=== PATIENT | male | born 1935 | race Caucasian/White ===

== ENCOUNTER 2022-11-30 19:35 | Emergency (ER) | payer MEDICARE, OTHER ==
[~2022-11-30] VITALS: Ht 177.8 cm; Wt 63.5 kg
[2022-11-30 20:00] VITALS: BP 126/70
--- NOTE | 2022-11-30 20:00 | NUR ---
[id number] FOUND WANDERING ON THE STRE[address], PATIENT STS "I LIVE IN [facility] [place]", NO MEDICAL COMPLAIN
--- NOTE | 2022-11-30 20:10 | NUR ---
PT SEEN BY CARTER
--- NOTE | 2022-11-30 20:32 | NUR ---
[facility] CALLED FOR GOING TO [facility] PER [place] ETA 15 MIN
--- NOTE | 2022-11-30 21:52 | NUR ---
PT PICKED UP BY [facility] TO DC TO [facility]
== END 2022-11-30 23:13 ==
LOC: ER 19:53
DX: Z04.6 Encounter for general psychiatric examination, requested by authority (principal)

== ENCOUNTER 2023-01-22 10:24 | Emergency (ER) | payer MEDICARE, OTHER ==
[~2023-01-22] VITALS: Ht 177.8 cm; Wt 68.0 kg
--- NOTE | 2023-01-22 10:40 | NUR ---
[facility] ABD MASS BELOW UMBILICUS TENDER TO TOUCH.NO SIGNS OF INFECTION NOTED. PAIN 4/10 ON PAIN SCALE. VITALS ARE WITHIN NORMAL LIMITS.
--- NOTE | 2023-01-22 11:05 | NUR ---
TO ER BED 3,NO APPARENT CHANGE IN CONDITION
[2023-01-22 11:56] LABS: BASOPHILS # (AUTO) 0.1 K/uL (0.0-0.2); BASOPHILS % (AUTO) 0.9 % (0.0-2.0); EOSINOPHILS % (AUTO) 9.1 % (0.0-6.0); HEMATOCRIT 36 % (39-51); HEMOGLOBIN 12.2 g/dL (13.5-17.5); LYMPHOCYTES # (AUTO) 1.9 K/uL (0.8-4.8); LYMPHOCYTES % (AUTO) 31.8 % (20.0-44.0); MEAN CORPUSCULAR HGB CONC 34 g/dl (31.0-36.0); MEAN CORPUSCULAR VOLUME 88 fL (80-96); MONOCYTES # (AUTO) 0.4 K/uL (0.1-1.30); MONOCYTES % (AUTO) 5.9 % (2.0-12.0); NEUTROPHILS # (AUTO) 3.2 K/uL (1.8-8.9); NEUTROPHILS % (AUTO) 52.3 % (43.0-81.0); PLATELET COUNT (AUTO) 234 K/uL (150-450); RED BLOOD CELL COUNT(AUTO) 4.13 MIL/uL (4.5-6.0); WHITE BLOOD COUNT (AUTO) 6.1 K/uL (4.3-11.0)
[2023-01-22 12:04] LABS: CALCIUM, SERUM 8.7 mg/dL (8.5-10.1); CREATININE 1.1 mg/dL (0.6-1.3); POTASSIUM 4.3 mmol/L (3.5-5.1)
[2023-01-22 12:12] LABS: ALBUMIN 2.8 g/dL (3.4-5.0); BILIRUBIN,DIRECT 0.1 mg/dL (0.0-0.2); BILIRUBIN,TOTAL 0.2 mg/dL (0.2-1.0)
--- NOTE | 2023-01-22 13:09 | NUR ---
URINE COLLECTED AND SENT
[2023-01-22 13:36] LABS: BILIRUBIN,URINE NEGATIVE (NEGATIVE); COLOR,URINE YELLOW (YELLOW); LEUKOCYTE ESTERASE ,URINE NEGATIVE (NEGATIVE); NITRITE, URINE NEGATIVE (NEGATIVE); PROTEIN,URINE NEGATIVE (NEGATIVE); UGLUCOSE NEGATIVE (NEGATIVE)
--- NOTE | 2023-01-22 13:45 | NUR ---
SET UP TRANSPORTATION WITH [facility], ETA 60 MINUTES
--- NOTE | 2023-01-22 14:42 | NUR ---
TRANSPORTATION ARRIVED, PT TRANSPORTED IN STABLE CONDITION.
[2023-01-22 14:50] VITALS: BP 104/58; TEMP 98.1; O2SAT 100
== END 2023-01-22 14:50 | disposition home or self-care (01) ==
LOC: ER 10:28
DX: K43.9 Ventral hernia without obstruction or gangrene (principal); K59.00 Constipation, unspecified; E86.0 Dehydration; F03.90 Unspecified dementia, unspecified severity, without behavioral disturbance, psychotic disturbance, mood disturbance, and anxiety; I10 Essential (primary) hypertension
CPT/HCPCS: 36415; 80048-TC; 80076-TC; 83690-TC; 85025-TC

== ENCOUNTER 2024-09-06 14:12 | Emergency (ER) | payer MEDICARE, OTHER ==
[~2024-09-06] VITALS: Ht 172.7 cm; Wt 63.5 kg
[2024-09-06 14:18] VITALS: TEMP 97.8
[2024-09-06 15:02] LABS: BASOPHILS % (AUTO) 0.6 % (0.0-2.0); EOSINOPHILS # (AUTO) 0.5 K/uL (0.0-0.7); EOSINOPHILS % (AUTO) 7.2 % (0.0-6.0); HEMATOCRIT 38 % (39-51); HEMOGLOBIN 13.1 g/dL (13.5-17.5); LYMPHOCYTES # (AUTO) 1.8 K/uL (0.8-4.8); LYMPHOCYTES % (AUTO) 26.1 % (20.0-44.0); MEAN CORPUSCULAR HEMOGLOBIN 31 PG (26.0-33.0); MEAN CORPUSCULAR HGB CONC 34 g/dl (31.0-36.0); MEAN CORPUSCULAR VOLUME 89 fL (80-96); MONOCYTES # (AUTO) 0.4 K/uL (0.1-1.30); MONOCYTES % (AUTO) 5.6 % (2.0-12.0); NEUTROPHILS # (AUTO) 4.1 K/uL (1.8-8.9); NEUTROPHILS % (AUTO) 60.5 % (43.0-81.0); PLATELET COUNT (AUTO) 190 K/uL (150-450); RED BLOOD CELL COUNT(AUTO) 4.28 MIL/uL (4.5-6.0); RED CELL DISTRIBUTION WIDTH 13.6 % (11.5-15.0); WHITE BLOOD COUNT (AUTO) 6.8 K/uL (4.3-11.0)
[2024-09-06 15:13] LABS: CALCIUM, SERUM 9.2 mg/dL (8.5-10.1); CARBON DIOXIDE 29 mmol/L (21-32); CHLORIDE 107 mmol/L (98-107); CREATININE 1.4 mg/dL (0.6-1.3); GLUCOSE 101 mg/dL (74-106); POTASSIUM 4.6 mmol/L (3.5-5.1); SODIUM SERUM 144 mmol/L (136-145); UREA NITROGEN, BLOOD 36 mg/dL (7-18)
[2024-09-06 15:26] LABS: ALANINE AMINOTRANSFERASE 25 U/L (12-78); ALBUMIN 3.6 g/dL (3.4-5.0); ALKALINE PHOSPHATASE 90 U/L (46-116); ASPARTATE AMINOTRANSFERASE 17 U/L (15-37); BILIRUBIN,DIRECT 0.1 mg/dL (0.0-0.2); BILIRUBIN,TOTAL 0.3 mg/dL (0.2-1.0); NT-PRO BNP 280 pg/mL (0-125); TOTAL PROTEIN, SERUM 6.8 g/dL (6.4-8.2)
[2024-09-06 15:35] LABS: THYROID STIMULATING HORMONE 1.19 uIU/mL (0.358-3.74)
[2024-09-06] MEDS: IV NS 0.9% 1,000 ML BAG IV ONE (16:00)
[2024-09-06 16:39] LABS: APPEARANCE,URINE CLEAR (CLEAR); BILIRUBIN,URINE NEGATIVE (NEGATIVE); BLOOD, URINE NEGATIVE Ery/uL (NEGATIVE); COLOR,URINE YELLOW (YELLOW); KETONES,URINE TRACE mg/dL (NEGATIVE); LEUKOCYTE ESTERASE ,URINE NEGATIVE (NEGATIVE); NITRITE, URINE NEGATIVE (NEGATIVE); PROTEIN,URINE TRACE mg/dl (NEGATIVE); UGLUCOSE NEGATIVE (NEGATIVE)
[2024-09-06 18:08] LABS: ADD URINE CULTURE NO; BACTERIA,URINE None seen /HPF (None Seen); RBC,URINE 0-2 /HPF (0-2); SQUAMOUS EPITHELIAL CELL,UR 0-2 /HPF (None Seen); WBC,URINE 0-2 /HPF (0-3)
[2024-09-06 22:08] VITALS: BP 101/50; O2SAT 98
== END 2024-09-06 22:09 | disposition home or self-care (01) ==
LOC: ER 14:19
DX: K59.00 Constipation, unspecified (principal); F03.90 Unspecified dementia, unspecified severity, without behavioral disturbance, psychotic disturbance, mood disturbance, and anxiety; I10 Essential (primary) hypertension
CPT/HCPCS: 99285; 96360; 71045; 96361; 93005; 85025; 80048; 80076; 81001; 36415; 84439; 84443; 84484; 83880; J7030

== ENCOUNTER 2024-12-25 12:06 | Inpatient (IN) | payer MEDICARE, OTHER ==
[~2024-12-25] VITALS: Ht 175.3 cm; Wt 70.0 kg
[2024-12-25 12:51] LABS: BASOPHILS % (AUTO) 0.7 % (0.0-2.0); EOSINOPHILS # (AUTO) 0.6 K/uL (0.0-0.7); EOSINOPHILS % (AUTO) 8.8 % (0.0-6.0); HEMATOCRIT 38 % (39-51); HEMOGLOBIN 13.1 g/dL (13.5-17.5); LYMPHOCYTES % (AUTO) 32.4 % (20.0-44.0); MEAN CORPUSCULAR HEMOGLOBIN 31 PG (26.0-33.0); MEAN CORPUSCULAR HGB CONC 34 g/dl (31.0-36.0); MEAN CORPUSCULAR VOLUME 89 fL (80-96); MONOCYTES # (AUTO) 0.4 K/uL (0.1-1.30); MONOCYTES % (AUTO) 5.8 % (2.0-12.0); NEUTROPHILS # (AUTO) 3.3 K/uL (1.8-8.9); NEUTROPHILS % (AUTO) 52.3 % (43.0-81.0); PLATELET COUNT (AUTO) 233 K/uL (150-450); RED BLOOD CELL COUNT(AUTO) 4.29 MIL/uL (4.5-6.0); WHITE BLOOD COUNT (AUTO) 6.3 K/uL (4.3-11.0)
[2024-12-25 13:05] LABS: CALCIUM, SERUM 8.4 mg/dL (8.5-10.1); CARBON DIOXIDE 26 mmol/L (21-32); CHLORIDE 108 mmol/L (98-107); CREATININE 1.2 mg/dL (0.6-1.3); GLUCOSE 79 mg/dL (74-106); POTASSIUM 4.3 mmol/L (3.5-5.1); SODIUM SERUM 142 mmol/L (136-145); UREA NITROGEN, BLOOD 27 mg/dL (7-18)
[2024-12-25 13:10] LABS: ALANINE AMINOTRANSFERASE 23 U/L (12-78); ALBUMIN 3.7 g/dL (3.4-5.0); ALKALINE PHOSPHATASE 82 U/L (46-116); ASPARTATE AMINOTRANSFERASE 14 U/L (15-37); BILIRUBIN,DIRECT 0.1 mg/dL (0.0-0.2); BILIRUBIN,TOTAL 0.4 mg/dL (0.2-1.0); LIPASE 25 U/L (16-77); PARTIAL THROMBOPLASTIN TIME 26.1 SEC (24.3-34.3); PROTHROMBIN TIME 10.6 SECS (9.2-11.1); TOTAL PROTEIN, SERUM 6.7 g/dL (6.4-8.2)
[2024-12-25] MEDS ORDERED: FERR325T23 PO (13:15)
[2024-12-25] MEDS ORDERED: ASCO-352 PO (13:15)
[2024-12-25] MEDS ORDERED: CHOL100062 PO (13:15)
[2024-12-25] MEDS ORDERED: MELA5TAB PO (13:15)
[2024-12-25] MEDS ORDERED: LINA290C PO (13:15)
[2024-12-25] MEDS ORDERED: MULT-594 PO (13:15)
[2024-12-25] MEDS ORDERED: VENL75TA4 PO (13:15)
[2024-12-25] MEDS ORDERED: PANT40TA2 PO (13:15)
[2024-12-25] MEDS ORDERED: ACET-2030 PO (13:15)
[2024-12-25] MEDS ORDERED: GUAI100S9 PO (13:15)
[2024-12-25] MEDS ORDERED: MIRT-90 PO (13:15)
[2024-12-25] MEDS ORDERED: DOCU100T2 PO (13:15)
[2024-12-25] MEDS ORDERED: LORA-259 PO (13:15)
[2024-12-25] MEDS ORDERED: HYDR-4303 PO (13:15)
[2024-12-25] MEDS: PANTOPRAZOLE 80 MG in IV NS 0.9% 100 ML IV ONE (13:30)
[2024-12-25] MEDS: PANTOPRAZOLE 80 MG in IV NS 0.9% 500 ML IV ONE (13:45)
[2024-12-25 13:57] LABS: APPEARANCE,URINE CLEAR (CLEAR); BILIRUBIN,URINE Negative (NEGATIVE); BLOOD, URINE Negative Ery/uL (NEGATIVE); COLOR,URINE YELLOW (YELLOW); KETONES,URINE Negative (NEGATIVE); LEUKOCYTE ESTERASE ,URINE Negative (NEGATIVE); PROTEIN,URINE Negative (NEGATIVE); UGLUCOSE Negative (NEGATIVE); UROBILINOGEN,URINE 0.2 EU/dL (0.2)
[2024-12-25 14:00] LABS: NITRITE, URINE NEGATIVE (NEGATIVE)
[2024-12-25] MEDS ORDERED: MAG HYDROX/AL HYDROX/SIMETH 30 ML UDC PO PRN (14:30)
[2024-12-25] MEDS ORDERED: ACETAMINOPHEN 325 MG TABLET PO PRN (14:30)
[2024-12-25] MEDS ORDERED: ONDANSETRON HCL/PF 4 MG/2 ML VIAL IVP PRN (14:30)
[2024-12-25] MEDS ORDERED: TEMAZEPAM 15 MG CAPSULE PO PRN (14:30)
[2024-12-25] MEDS ORDERED: Z GUARD REMEDY 4 OZ OINT TP PRN (14:30)
[2024-12-25] MEDS ORDERED: LORAZEPAM 1 MG TABLET PO PRN (15:00)
[2024-12-25] MEDS ORDERED: HYDROCODONE/APAP 5/325MG TABLET PO PRN (15:00)
[2024-12-25 16:00] VITALS: BP 174/78; TEMP 98.1; O2SAT 99
[2024-12-25] MEDS: hydrALAZINE HCL IV 20 MG VIAL IV PRN (16:45)
[2024-12-25] MEDS: DOCUSATE SODIUM 100 MG CAPSULE PO SCH (16:45)
[2024-12-25 16:58] VITALS: BP 174/78; TEMP 98.1; O2SAT 99
[2024-12-25 20:00] VITALS: BP 151/69; TEMP 98.8; O2SAT 96
[2024-12-25] MEDS: PANTOPRAZOLE 40 MG VIAL IV SCH (20:47)
[2024-12-25] MEDS: MIRTAZAPINE 15 MG TABLET PO SCH (21:32)
[2024-12-26 04:00] VITALS: BP 153/70; TEMP 97.5; O2SAT 96
[2024-12-26 08:00] VITALS: BP 104/58; TEMP 97.9; O2SAT 97
[2024-12-26 08:21] LABS: MAGNESIUM 2.3 mg/dL (1.8-2.4); PHOSPHORUS 3.5 mg/dL (2.5-4.9); POTASSIUM 3.9 mmol/L (3.5-5.1)
[2024-12-26] MEDS: ASCORBIC ACID 500 MG TABLET PO SCH (09:00)
[2024-12-26] MEDS: MULTIVITAMINS,THERAGRAN 1 UDTAB TABLET PO SCH (09:00)
[2024-12-26] MEDS: VENLAFAXINE 37.5 MG TABLET PO SCH (09:00)
[2024-12-26] MEDS: CHOLECALCIFEROL 1,000 UNIT TABLET (VIT D3) PO SCH (09:00)
[2024-12-26 09:23] LABS: BASOPHILS % (AUTO) 0.7 % (0.0-2.0); EOSINOPHILS # (AUTO) 0.5 K/uL (0.0-0.7); EOSINOPHILS % (AUTO) 8.6 % (0.0-6.0); HEMATOCRIT 38 % (39-51); HEMOGLOBIN 12.8 g/dL (13.5-17.5); LYMPHOCYTES # (AUTO) 2.4 K/uL (0.8-4.8); MEAN CORPUSCULAR HEMOGLOBIN 30 PG (26.0-33.0); MEAN CORPUSCULAR HGB CONC 34 g/dl (31.0-36.0); MEAN CORPUSCULAR VOLUME 89 fL (80-96); MONOCYTES # (AUTO) 0.4 K/uL (0.1-1.30); NEUTROPHILS # (AUTO) 2.8 K/uL (1.8-8.9); NEUTROPHILS % (AUTO) 44.7 % (43.0-81.0); PLATELET COUNT (AUTO) 210 K/uL (150-450); RED CELL DISTRIBUTION WIDTH 13.8 % (11.5-15.0); WHITE BLOOD COUNT (AUTO) 6.2 K/uL (4.3-11.0)
[2024-12-26 14:07] VITALS: BP 135/55; TEMP 97; O2SAT 97
[2024-12-26] MEDS ORDERED: ANESTHESIA TRAY IN PYXIS 1 EA TRAY MC ONE (14:41)
[2024-12-26 16:00] VITALS: BP 147/62; TEMP 98.6; O2SAT 100
[2024-12-26] MEDS: MAGNESIUM HYDROXIDE 30 ML UDC PO PRN (17:24)
[2024-12-26 20:00] VITALS: BP 122/44; TEMP 97.3; O2SAT 95
[2024-12-27 04:00] VITALS: BP 147/55; TEMP 97.6; O2SAT 97
[2024-12-27 06:51] LABS: CALCIUM, SERUM 8.7 mg/dL (8.5-10.1); CREATININE 1.1 mg/dL (0.6-1.3); POTASSIUM 3.9 mmol/L (3.5-5.1)
[2024-12-27 08:00] VITALS: BP 102/84; TEMP 97.3; O2SAT 99
[2024-12-27] MEDS: VENLAFAXINE 25 MG TABLET PO SCH (09:24)
[2024-12-27 10:27] LABS: BASOPHILS % (AUTO) 0.7 % (0.0-2.0); EOSINOPHILS # (AUTO) 0.5 K/uL (0.0-0.7); EOSINOPHILS % (AUTO) 7.9 % (0.0-6.0); HEMATOCRIT 44 % (39-51); HEMOGLOBIN 14.7 g/dL (13.5-17.5); LYMPHOCYTES # (AUTO) 1.9 K/uL (0.8-4.8); LYMPHOCYTES % (AUTO) 28.9 % (20.0-44.0); MEAN CORPUSCULAR HEMOGLOBIN 30 PG (26.0-33.0); MEAN CORPUSCULAR HGB CONC 33 g/dl (31.0-36.0); MEAN CORPUSCULAR VOLUME 90 fL (80-96); MONOCYTES # (AUTO) 0.4 K/uL (0.1-1.30); NEUTROPHILS # (AUTO) 3.7 K/uL (1.8-8.9); NEUTROPHILS % (AUTO) 56.5 % (43.0-81.0); PLATELET COUNT (AUTO) 264 K/uL (150-450); RED BLOOD CELL COUNT(AUTO) 4.95 MIL/uL (4.5-6.0); RED CELL DISTRIBUTION WIDTH 13.8 % (11.5-15.0); WHITE BLOOD COUNT (AUTO) 6.6 K/uL (4.3-11.0)
[2024-12-27 16:00] VITALS: BP 145/54; TEMP 97.9; O2SAT 99
== END 2024-12-27 16:00 | DRG 392 ==
LOC: ER 12:11 → TELE-TD 15:09 → MEDSG1 15:51
PROVIDERS: ADMIT Nurse Practitioner Acute Care; ATTEND Nurse Practitioner Acute Care
PROC: 0DB68ZX Excision of Stomach, Via Natural or Artificial Opening Endoscopic, Diagnostic (ICD-10-PCS; principal; 2024-12-26 12:30)
DX: K29.70 Gastritis, unspecified, without bleeding (principal); F03.93 Unspecified dementia, unspecified severity, with mood disturbance; F32.A Depression, unspecified; I10 Essential (primary) hypertension; I25.10 Atherosclerotic heart disease of native coronary artery without angina pectoris; Z95.0 Presence of cardiac pacemaker; K62.89 Other specified diseases of anus and rectum; K58.1 Irritable bowel syndrome with constipation; E86.0 Dehydration; R79.89 Other specified abnormal findings of blood chemistry
CPT/HCPCS: 36415; 71045-TC; 80048-TC; 80076-TC; 83690-TC; 83735-TC; 84100-TC; 84484-TC; 85025-TC; 85730-TC; 86850-TC; 87086-TC; G0378; J0360; J2470; J2704; J7030

== ENCOUNTER 2025-01-08 17:24 | Emergency (ER) | payer MEDICARE, OTHER ==
[~2025-01-08] VITALS: Ht 175.3 cm; Wt 69.9 kg
[~2025-01-08 17:24] MED LIST: ACET-2030 PO; ASCO-352 PO; CHOL100062 PO; DOCU100T2 PO; FERR325T23 PO; GUAI100S9 PO; HYDR-4303 PO; LINA290C PO; LORA-259 PO; MELA5TAB PO; MIRT-90 PO; MULT-594 PO; PANT40TA2 PO; VENL75TA4 PO
[2025-01-08 17:34] VITALS: TEMP 98.1
[2025-01-08 17:46] LABS: PLATELET COUNT (AUTO) 197 K/uL (150-450); RED BLOOD CELL COUNT(AUTO) 4.24 MIL/uL (4.5-6.0); RED CELL DISTRIBUTION WIDTH 13.9 % (11.5-15.0); WHITE BLOOD COUNT (AUTO) 6.5 K/uL (4.3-11.0)
[2025-01-08 17:52] LABS: CALCIUM, SERUM 8.8 mg/dL (8.5-10.1); CREATININE 1.1 mg/dL (0.6-1.3); SODIUM SERUM 139 mmol/L (136-145); UREA NITROGEN, BLOOD 30 mg/dL (7-18)
[2025-01-08 17:59] LABS: ASPARTATE AMINOTRANSFERASE 15 U/L (15-37); TOTAL PROTEIN, SERUM 6.4 g/dL (6.4-8.2)
[2025-01-08 18:08] LABS: NT-PRO BNP 177.0 pg/mL (0-125)
[2025-01-08 18:19] VITALS: BP 103/44; O2SAT 98
[2025-01-08 19:51] LABS: APPEARANCE,URINE CLEAR (CLEAR); BLOOD, URINE Negative Ery/uL (NEGATIVE); LEUKOCYTE ESTERASE ,URINE Negative (NEGATIVE); NITRITE, URINE NEGATIVE (NEGATIVE); UGLUCOSE Negative (NEGATIVE)
[2025-01-08] MEDS: IV NS 0.9% 1,000 ML BAG IV ONE (20:26)
== END 2025-01-08 21:04 ==
LOC: ER 17:30
DX: E86.0 Dehydration (principal); R53.1 Weakness; F03.90 Unspecified dementia, unspecified severity, without behavioral disturbance, psychotic disturbance, mood disturbance, and anxiety; I10 Essential (primary) hypertension; R06.02 Shortness of breath; I25.10 Atherosclerotic heart disease of native coronary artery without angina pectoris; I44.0 Atrioventricular block, first degree; I49.3 Ventricular premature depolarization; Z79.899 Other long term (current) drug therapy; Z95.0 Presence of cardiac pacemaker
CPT/HCPCS: 99285; 96360; 71045; 93005; 85025; 80048; 80076; 81003; 36415; 84443; 84484; 83880; 82962; J7030

== ENCOUNTER 2025-02-02 19:10 | Inpatient (IN) | payer MEDICARE, MEDICAID ==
[~2025-02-02] VITALS: Ht 175.3 cm; Wt 69.9 kg
[2025-02-02 20:26] LABS: PLATELET COUNT (AUTO) 213 K/uL (150-450); RED BLOOD CELL COUNT(AUTO) 4.43 MIL/uL (4.5-6.0); RED CELL DISTRIBUTION WIDTH 13.7 % (11.5-15.0); WHITE BLOOD COUNT (AUTO) 8.0 K/uL (4.3-11.0)
[2025-02-02 20:39] LABS: CALCIUM, SERUM 9.1 mg/dL (8.5-10.1); CREATININE 1.1 mg/dL (0.6-1.3); SODIUM SERUM 142 mmol/L (136-145); UREA NITROGEN, BLOOD 28 mg/dL (7-18)
[2025-02-02 20:44] LABS: ALCOHOL, BLOOD < 3 mg/dL (0-10); ASPARTATE AMINOTRANSFERASE 17 U/L (15-37); TOTAL PROTEIN, SERUM 6.8 g/dL (6.4-8.2)
[2025-02-02 21:12] LABS: APPEARANCE,URINE CLEAR (CLEAR); BLOOD, URINE NEGATIVE Ery/uL (NEGATIVE); LEUKOCYTE ESTERASE ,URINE NEGATIVE (NEGATIVE); NITRITE, URINE NEGATIVE (NEGATIVE); UGLUCOSE NEGATIVE (NEGATIVE)
[2025-02-02 21:32] LABS: AMPHETAMINE, URINE NEGATIVE (NEGATIVE); BARBITURATE, URINE NEGATIVE (NEGATIVE); BENZODIAZEPINE, URINE NEGATIVE (NEGATIVE); CANNABINOID, URINE NEGATIVE (NEGATIVE); COCCAINE, URINE NEGATIVE (NEGATIVE); OPIATE, URINE NEGATIVE (NEGATIVE)
[2025-02-03] MEDS ORDERED: MAG HYDROX/AL HYDROX/SIMETH 30 ML UDC PO PRN (05:00)
[2025-02-03] MEDS ORDERED: TEMAZEPAM 7.5 MG CAPSULE PO PRN ×2 (05:00)
[2025-02-03] MEDS ORDERED: LORAZEPAM 0.5 MG TABLET PO PRN (05:00)
[2025-02-03] MEDS ORDERED: ACETAMINOPHEN 325 MG TABLET PO PRN (05:00)
[2025-02-03 05:02] VITALS: BP 142/71; TEMP 97.7; O2SAT 98
[2025-02-03] MEDS: BLOOD SUGAR DIAGNOSTIC 1 EACH STRIP IN ONE (05:24)
[2025-02-03] MEDS ORDERED: HYDROCODONE/APAP 5/325MG TABLET PO PRN (05:30)
[2025-02-03] MEDS ORDERED: GUAIFENESIN/D-METHORPHAN HB 5 ML UDC PO PRN (06:00)
[2025-02-03] MEDS: PANTOPRAZOLE 40 MG TABLET.DR PO SCH (07:37)
[2025-02-03 08:00] VITALS: BP 149/56; TEMP 97.7; O2SAT 98
[2025-02-03] MEDS: FERROUS SULFATE (325 MG) 325 MG/TAB TABLET PO SCH (08:37)
[2025-02-03] MEDS: ASCORBIC ACID 500 MG TABLET PO SCH (08:37)
[2025-02-03] MEDS: DOCUSATE SODIUM 100 MG CAPSULE PO SCH (08:37)
[2025-02-03] MEDS: MULTIVITAMINS,THERAGRAN 1 UDTAB TABLET PO SCH (08:38)
[2025-02-03] MEDS: CHOLECALCIFEROL 1,000 UNIT TABLET (VIT D3) PO SCH (08:57)
[2025-02-03] MEDS: VENLAFAXINE XR 75 MG CAP.SR.24H PO SCH (12:55)
[2025-02-03 15:45] VITALS: BP 127/55; TEMP 98.1; O2SAT 97
[2025-02-03 19:41] VITALS: BP 143/58; TEMP 98; O2SAT 97
[2025-02-03] MEDS: MIRTAZAPINE 15 MG TABLET PO SCH (21:14)
[2025-02-04 08:00] VITALS: BP 131/50; TEMP 98.6; O2SAT 96
[2025-02-04 08:19] LABS: CREATININE 1.1 mg/dL (0.6-1.3)
[2025-02-04 08:25] LABS: LDL 111 mg/dL (0-99)
[2025-02-04 08:26] LABS: ASPARTATE AMINOTRANSFERASE 16.0 U/L (15-37); CALCIUM, SERUM 8.7 mg/dL (8.5-10.1); CREATININE 1.1 mg/dL (0.6-1.3); SODIUM SERUM 141.0 mmol/L (136-145); TOTAL PROTEIN, SERUM 6.0 g/dL (6.4-8.2); UREA NITROGEN, BLOOD 28.0 mg/dL (7-18)
[2025-02-04 16:00] VITALS: BP 139/75; TEMP 97.5; O2SAT 96
[2025-02-04 19:51] VITALS: BP 131/63; TEMP 98.2; O2SAT 96
[2025-02-05 07:58] VITALS: BP 107/89; TEMP 98; O2SAT 96
[2025-02-05] MEDS: MAGNESIUM HYDROXIDE 30 ML UDC PO PRN (08:55)
[2025-02-05] MEDS: LORAZEPAM 0.5 MG TABLET PO PRN (12:37)
[2025-02-05 16:00] VITALS: BP 119/71; TEMP 98.9; O2SAT 95
[2025-02-05 20:26] VITALS: BP 140/67; TEMP 98.6; O2SAT 96
[2025-02-06] MEDS ORDERED: Z GUARD REMEDY 4 OZ OINT TP PRN (07:00)
[2025-02-06 08:00] VITALS: BP 107/90; TEMP 97.8; O2SAT 98
[2025-02-06 16:00] VITALS: BP 119/67; TEMP 98.1; O2SAT 97
[2025-02-06 20:15] VITALS: BP 102/53; TEMP 97.7; O2SAT 96
[2025-02-06 20:44] VITALS: BP 115/65; TEMP 97.8; O2SAT 98
[2025-02-06] MEDS: ATORVASTATIN 40 MG TABLET PO SCH (21:11)
[2025-02-07 08:00] VITALS: BP 116/59; TEMP 97.7; O2SAT 97
[2025-02-07 16:00] VITALS: BP 109/66; TEMP 99; O2SAT 93
[2025-02-07 20:43] VITALS: BP 112/89; TEMP 99; O2SAT 97
[2025-02-08 08:00] VITALS: BP 121/62; TEMP 97.7; O2SAT 99
[2025-02-08 16:00] VITALS: BP 123/98; TEMP 98.4; O2SAT 94
[2025-02-08 19:49] VITALS: BP 127/71; TEMP 97.8; O2SAT 96
[2025-02-09 08:00] VITALS: BP 104/63; TEMP 97.8; O2SAT 96
[2025-02-09 16:08] VITALS: BP 97/54; TEMP 97.8; O2SAT 95
[2025-02-09 19:56] VITALS: BP 121/50; TEMP 97.9; O2SAT 96
[2025-02-09 20:44] VITALS: BP 120/65; TEMP 97.2; O2SAT 98
[2025-02-10 08:00] VITALS: BP 106/60; TEMP 97.8; O2SAT 98
== END 2025-02-10 13:40 | DRG 885 ==
LOC: ER 19:12 → GPS 02-03 04:01
PROVIDERS: ADMIT Psychiatry & Neurology Psychosomatic Medicine; ATTEND Internal Medicine
DX: F29 Unspecified psychosis not due to a substance or known physiological condition (principal); R45.1 Restlessness and agitation; F03.92 Unspecified dementia, unspecified severity, with psychotic disturbance; F03.911 Unspecified dementia, unspecified severity, with agitation; F03.918 Unspecified dementia, unspecified severity, with other behavioral disturbance; F03.93 Unspecified dementia, unspecified severity, with mood disturbance; F03.94 Unspecified dementia, unspecified severity, with anxiety; F32.3 Major depressive disorder, single episode, severe with psychotic features; Z20.822 Contact with and (suspected) exposure to COVID-19; I10 Essential (primary) hypertension; Z95.0 Presence of cardiac pacemaker; Z87.19 Personal history of other diseases of the digestive system; Z79.899 Other long term (current) drug therapy; I25.10 Atherosclerotic heart disease of native coronary artery without angina pectoris; Z63.8 Other specified problems related to primary support group; F41.1 Generalized anxiety disorder; R79.89 Other specified abnormal findings of blood chemistry; K46.9 Unspecified abdominal hernia without obstruction or gangrene; G47.00 Insomnia, unspecified; D64.9 Anemia, unspecified; D72.829 Elevated white blood cell count, unspecified
CPT/HCPCS: 36415; 71045-TC; 80048-TC; 80053-TC; 80061-TC; 80076-TC; 82565-TC; 82962-TC; 84484-TC; 85025-TC; 87081-TC; 97110-TC; 97116-TC; 97530-TC; G0480

== ENCOUNTER 2025-02-26 11:01 | Emergency (ER) | payer MEDICARE, OTHER ==
[~2025-02-26] VITALS: Ht 172.7 cm; Wt 78.0 kg
[2025-02-26 11:37] LABS: PLATELET COUNT (AUTO) 177 K/uL (150-450); RED BLOOD CELL COUNT(AUTO) 3.87 MIL/uL (4.5-6.0); RED CELL DISTRIBUTION WIDTH 13.3 % (11.5-15.0); WHITE BLOOD COUNT (AUTO) 7.7 K/uL (4.3-11.0)
[2025-02-26 11:49] LABS: ASPARTATE AMINOTRANSFERASE 18 U/L (15-37); CALCIUM, SERUM 9.1 mg/dL (8.5-10.1); CREATININE 1.5 mg/dL (0.6-1.3); SODIUM SERUM 142 mmol/L (136-145); TOTAL PROTEIN, SERUM 6.2 g/dL (6.4-8.2); UREA NITROGEN, BLOOD 28 mg/dL (7-18)
[2025-02-26 11:50] LABS: LACTIC ACID 1.1 mmol/L (0.4-2.0)
[2025-02-26 12:13] LABS: APPEARANCE,URINE CLEAR (CLEAR); BLOOD, URINE NEGATIVE Ery/uL (NEGATIVE); LEUKOCYTE ESTERASE ,URINE NEGATIVE (NEGATIVE); NITRITE, URINE NEGATIVE (NEGATIVE); UGLUCOSE NEGATIVE (NEGATIVE)
[2025-02-26] MEDS ORDERED: IOHEXOL-300 100 ML VIAL IV ONE (12:33)
[2025-02-26] MEDS ORDERED: IV NS 0.9% 250 ML IV ONE (12:34)
[2025-02-26] MEDS: IV NS 0.9% 1,000 ML BAG IV ONE (14:31)
[2025-02-26 15:13] VITALS: BP 111/65; TEMP 98.6; O2SAT 99
== END 2025-02-26 16:16 | disposition home or self-care (01) ==
LOC: ER 11:24
DX: K59.00 Constipation, unspecified (principal); R40.0 Somnolence; R10.9 Unspecified abdominal pain; K42.9 Umbilical hernia without obstruction or gangrene; K44.9 Diaphragmatic hernia without obstruction or gangrene; R11.0 Nausea; R53.1 Weakness; R79.89 Other specified abnormal findings of blood chemistry; F03.90 Unspecified dementia, unspecified severity, without behavioral disturbance, psychotic disturbance, mood disturbance, and anxiety; I10 Essential (primary) hypertension; R94.31 Abnormal electrocardiogram [ECG] [EKG]; Z79.899 Other long term (current) drug therapy; Z95.0 Presence of cardiac pacemaker
CPT/HCPCS: 99285; 70450; 71045; 93005; 74177; 85025; 80048; 83605; 80076; 81003; 36415; 84443; 84484; J7030; J7050; Q9967

== ENCOUNTER 2025-04-02 10:44 | Emergency (ER) | payer MEDICARE, OTHER ==
[~2025-04-02] VITALS: Ht 170.2 cm; Wt 68.0 kg
[2025-04-02 10:46] VITALS: TEMP 97.9
[2025-04-02 12:41] LABS: PLATELET COUNT (AUTO) 193 K/uL (150-450); RED BLOOD CELL COUNT(AUTO) 4.05 MIL/uL (4.5-6.0); RED CELL DISTRIBUTION WIDTH 14.3 % (11.5-15.0); WHITE BLOOD COUNT (AUTO) 7.1 K/uL (4.3-11.0)
[2025-04-02 12:42] LABS: CALCIUM, SERUM 9.1 mg/dL (8.5-10.1); CREATININE 1.6 mg/dL (0.6-1.3); SERUM AMMONIA 28 umol/L (11-32); SODIUM SERUM 145 mmol/L (136-145); UREA NITROGEN, BLOOD 33 mg/dL (7-18)
[2025-04-02 12:47] LABS: ALCOHOL, BLOOD < 3 mg/dL (0-10); ASPARTATE AMINOTRANSFERASE 43 U/L (15-37); TOTAL PROTEIN, SERUM 6.5 g/dL (6.4-8.2)
[2025-04-02 12:53] LABS: NT-PRO BNP 325.0 pg/mL (0-125)
[2025-04-02 14:28] LABS: APPEARANCE,URINE CLEAR (CLEAR); BLOOD, URINE NEGATIVE Ery/uL (NEGATIVE); LEUKOCYTE ESTERASE ,URINE NEGATIVE (NEGATIVE); NITRITE, URINE NEGATIVE (NEGATIVE); UGLUCOSE NEGATIVE (NEGATIVE)
[2025-04-02 14:36] LABS: AMPHETAMINE, URINE NEGATIVE (NEGATIVE); BARBITURATE, URINE NEGATIVE (NEGATIVE); BENZODIAZEPINE, URINE NEGATIVE (NEGATIVE); CANNABINOID, URINE NEGATIVE (NEGATIVE); COCCAINE, URINE NEGATIVE (NEGATIVE); OPIATE, URINE NEGATIVE (NEGATIVE)
[2025-04-02 15:11] LABS: ADD URINE CULTURE NO; HYALINE CASTS, URINE Rare /LPF (None Seen); SQUAMOUS EPITHELIAL CELL,UR 0-2 /HPF (None Seen)
[2025-04-02 16:06] VITALS: BP 151/65; O2SAT 99
== END 2025-04-02 15:55 ==
LOC: ER 11:06
DX: R53.1 Weakness (principal); I11.9 Hypertensive heart disease without heart failure; F03.90 Unspecified dementia, unspecified severity, without behavioral disturbance, psychotic disturbance, mood disturbance, and anxiety; I25.10 Atherosclerotic heart disease of native coronary artery without angina pectoris; R06.02 Shortness of breath; I67.82 Cerebral ischemia; Z79.899 Other long term (current) drug therapy; Z95.0 Presence of cardiac pacemaker
CPT/HCPCS: 36415; 70450-TC; 71045-TC; 80048-TC; 80076-TC; 81001; 82140-TC; 82962-TC; 83735-TC; 83880; 84439-TC; 84443-TC; 84484-TC; 85025-TC; G0480

== ENCOUNTER 2025-04-04 15:48 | Inpatient (IN) | payer MEDICARE, OTHER ==
[~2025-04-04] VITALS: Ht 172.7 cm; Wt 68.9 kg
[2025-04-04 16:27] LABS: PLATELET COUNT (AUTO) 195 K/uL (150-450); RED BLOOD CELL COUNT(AUTO) 3.99 MIL/uL (4.5-6.0); RED CELL DISTRIBUTION WIDTH 13.9 % (11.5-15.0); WHITE BLOOD COUNT (AUTO) 7.2 K/uL (4.3-11.0)
[2025-04-04 16:39] LABS: SERUM AMMONIA 8 umol/L (11-32)
[2025-04-04 16:40] LABS: CALCIUM, SERUM 8.8 mg/dL (8.5-10.1); CREATININE 1.4 mg/dL (0.6-1.3); SODIUM SERUM 145 mmol/L (136-145); UREA NITROGEN, BLOOD 36 mg/dL (7-18)
[2025-04-04 16:46] LABS: ALCOHOL, BLOOD < 3 mg/dL (0-10); ASPARTATE AMINOTRANSFERASE 67 U/L (15-37); TOTAL PROTEIN, SERUM 6.5 g/dL (6.4-8.2)
[2025-04-04 17:09] LABS: AMPHETAMINE, URINE NEGATIVE (NEGATIVE); BARBITURATE, URINE NEGATIVE (NEGATIVE); BENZODIAZEPINE, URINE NEGATIVE (NEGATIVE); CANNABINOID, URINE NEGATIVE (NEGATIVE); COCCAINE, URINE NEGATIVE (NEGATIVE); OPIATE, URINE NEGATIVE (NEGATIVE)
[2025-04-04 17:18] LABS: APPEARANCE,URINE CLEAR (CLEAR); BLOOD, URINE NEGATIVE Ery/uL (NEGATIVE); LEUKOCYTE ESTERASE ,URINE NEGATIVE (NEGATIVE); NITRITE, URINE NEGATIVE (NEGATIVE); UGLUCOSE NEGATIVE (NEGATIVE)
[2025-04-04] MEDS ORDERED: MAG HYDROX/AL HYDROX/SIMETH 30 ML UDC PO PRN (18:30)
[2025-04-04] MEDS ORDERED: ONDANSETRON HCL/PF 4 MG/2 ML VIAL IVP PRN (18:30)
[2025-04-04] MEDS ORDERED: Z GUARD REMEDY 4 OZ OINT TP PRN (18:30)
[2025-04-04] MEDS ORDERED: MAGNESIUM HYDROXIDE 30 ML UDC PO PRN (18:30)
[2025-04-04] MEDS: DOCUSATE SODIUM 100 MG CAPSULE PO SCH (18:52)
[2025-04-04] MEDS: ENOXAPARIN SODIUM 40 MG/0.4 ML DISP.SYRIN SQ SCH (18:53)
[2025-04-04] MEDS: IV NS 0.9% 1,000 ML IV PRN (19:10)
[2025-04-04 20:00] VITALS: BP 152/57; TEMP 97.7; O2SAT 99
[2025-04-04] MEDS: MIRTAZAPINE 15 MG TABLET PO SCH (21:19)
[2025-04-04] MEDS: ZOLPIDEM TARTRATE 5 MG TABLET PO PRN (23:04)
[2025-04-05 04:00] VITALS: BP 145/56; TEMP 97.3; O2SAT 94
[2025-04-05 06:40] LABS: PLATELET COUNT (AUTO) 163 K/uL (150-450); RED BLOOD CELL COUNT(AUTO) 3.62 MIL/uL (4.5-6.0); RED CELL DISTRIBUTION WIDTH 13.6 % (11.5-15.0); WHITE BLOOD COUNT (AUTO) 7.4 K/uL (4.3-11.0)
[2025-04-05 06:49] LABS: CALCIUM, SERUM 8.3 mg/dL (8.5-10.1); CREATININE 1.1 mg/dL (0.6-1.3); PHOSPHORUS 3.2 mg/dL (2.5-4.9); SODIUM SERUM 146.0 mmol/L (136-145); UREA NITROGEN, BLOOD 24.0 mg/dL (7-18)
[2025-04-05 08:00] VITALS: BP 135/56; TEMP 97; O2SAT 98
[2025-04-05 08:01] VITALS: BP 135/46; TEMP 97; O2SAT 98
[2025-04-05] MEDS ORDERED: RISP0.2515 PO (08:04)
[2025-04-05] MEDS ORDERED: MIRT7.5T10 PO (08:04)
[2025-04-05] MEDS ORDERED: RISP0.5T65 PO (08:04)
[2025-04-05] MEDS: VENLAFAXINE 37.5 MG TABLET PO SCH (10:15)
[2025-04-05] MEDS: ASCORBIC ACID 500 MG TABLET PO SCH (10:15)
[2025-04-05] MEDS: PANTOPRAZOLE 40 MG TABLET.DR PO SCH (10:16)
[2025-04-05] MEDS: CHOLECALCIFEROL 1,000 UNIT TABLET (VIT D3) PO SCH (10:16)
[2025-04-05] MEDS: MULTIVITAMIN/LUTEIN/MINERALS 1 TAB PO SCH (10:17)
[2025-04-05 15:37] VITALS: BP 129/46; TEMP 97.5; O2SAT 100
[2025-04-05 16:00] VITALS: BP 129/46; TEMP 97.5; O2SAT 100
[2025-04-05] MEDS: FERROUS SULFATE (325 MG) 325 MG/TAB TABLET PO SCH (18:10)
[2025-04-05 20:00] VITALS: BP 140/60; TEMP 98.6; O2SAT 94
[2025-04-06 04:38] VITALS: BP 130/70; TEMP 98; O2SAT 95
[2025-04-06 06:28] LABS: PLATELET COUNT (AUTO) 179 K/uL (150-450); RED BLOOD CELL COUNT(AUTO) 3.94 MIL/uL (4.5-6.0); RED CELL DISTRIBUTION WIDTH 13.9 % (11.5-15.0); WHITE BLOOD COUNT (AUTO) 6.1 K/uL (4.3-11.0)
[2025-04-06 06:38] LABS: CALCIUM, SERUM 8.4 mg/dL (8.5-10.1); CREATININE 1.1 mg/dL (0.6-1.3); PHOSPHORUS 3.1 mg/dL (2.5-4.9); SODIUM SERUM 146.0 mmol/L (136-145); UREA NITROGEN, BLOOD 21.0 mg/dL (7-18)
[2025-04-06 08:00] VITALS: BP 158/66; TEMP 98.1; O2SAT 97
[2025-04-06] MEDS: IV 1/2NS 1000 ML 1,000 ML IV SCH (10:55)
[2025-04-06 16:00] VITALS: BP 153/55; TEMP 97.2; O2SAT 94
[2025-04-06] MEDS: ACETAMINOPHEN 325 MG TABLET PO PRN (22:23)
[2025-04-07] VITALS: BP 103/55; TEMP 97.9; O2SAT 99
[2025-04-07 08:00] VITALS: BP 140/72; TEMP 98.3; O2SAT 99
[2025-04-07 08:21] LABS: CALCIUM, SERUM 8.5 mg/dL (8.5-10.1); CREATININE 1.1 mg/dL (0.6-1.3); SODIUM SERUM 144.0 mmol/L (136-145); UREA NITROGEN, BLOOD 15.0 mg/dL (7-18)
[2025-04-07 16:00] VITALS: BP 140/57; TEMP 98.4; O2SAT 96
[2025-04-07] MEDS: GABAPENTIN 100 MG CAPSULE PO SCH (18:11)
[2025-04-07 20:00] VITALS: BP 141/62; TEMP 98.2; O2SAT 96
[2025-04-07] MEDS: LORAZEPAM 1 MG TABLET PO PRN (22:12)
[2025-04-08 09:00] VITALS: BP 131/74; TEMP 97.7; O2SAT 95
[2025-04-08 11:43] LABS: PLATELET COUNT (AUTO) 188 K/uL (150-450); RED BLOOD CELL COUNT(AUTO) 3.72 MIL/uL (4.5-6.0); RED CELL DISTRIBUTION WIDTH 13.6 % (11.5-15.0); WHITE BLOOD COUNT (AUTO) 6.2 K/uL (4.3-11.0)
[2025-04-08 11:55] LABS: CALCIUM, SERUM 8.5 mg/dL (8.5-10.1); CREATININE 1.2 mg/dL (0.6-1.3); PHOSPHORUS 4.2 mg/dL (2.5-4.9); SODIUM SERUM 144.0 mmol/L (136-145); UREA NITROGEN, BLOOD 16.0 mg/dL (7-18)
[2025-04-08 12:02] VITALS: O2SAT 95
[2025-04-08] MEDS: POTASSIUM CHLORIDE 20 MEQ POWDER PACKET PO SCH (12:41)
[2025-04-08] MEDS: POTASSIUM CHLORIDE 20 MEQ POWDER PACKET PO ONE (14:24)
[2025-04-08 16:40] VITALS: BP 135/60; TEMP 97.9; O2SAT 99
[2025-04-08 20:00] VITALS: BP 152/55; TEMP 97.5; O2SAT 98
[2025-04-09 04:00] VITALS: BP 148/62; TEMP 97.7; O2SAT 98
[2025-04-09 07:15] LABS: PLATELET COUNT (AUTO) 215 K/uL (150-450); RED BLOOD CELL COUNT(AUTO) 4.11 MIL/uL (4.5-6.0); RED CELL DISTRIBUTION WIDTH 13.6 % (11.5-15.0); WHITE BLOOD COUNT (AUTO) 7.4 K/uL (4.3-11.0)
[2025-04-09 07:22] LABS: CALCIUM, SERUM 9.0 mg/dL (8.5-10.1); CREATININE 1.1 mg/dL (0.6-1.3); PHOSPHORUS 4.2 mg/dL (2.5-4.9); SODIUM SERUM 143.0 mmol/L (136-145); UREA NITROGEN, BLOOD 17.0 mg/dL (7-18)
[2025-04-09 08:00] VITALS: BP 148/62; TEMP 97.8; O2SAT 94
[2025-04-09] MEDS: GABAPENTIN 300 MG CAPSULE PO SCH (08:15)
== END 2025-04-09 15:28 | DRG 640 ==
LOC: ER 16:04 → MEDSG1 16:53
PROVIDERS: ADMIT Nurse Practitioner Acute Care
DX: E86.0 Dehydration (principal); G93.41 Metabolic encephalopathy; N17.0 Acute kidney failure with tubular necrosis; J81.1 Chronic pulmonary edema; F01.54 Vascular dementia, unspecified severity, with anxiety; F01.53 Vascular dementia, unspecified severity, with mood disturbance; F01.52 Vascular dementia, unspecified severity, with psychotic disturbance; F33.3 Major depressive disorder, recurrent, severe with psychotic symptoms; I11.9 Hypertensive heart disease without heart failure; Z20.822 Contact with and (suspected) exposure to COVID-19; Z95.0 Presence of cardiac pacemaker; I25.10 Atherosclerotic heart disease of native coronary artery without angina pectoris; K46.9 Unspecified abdominal hernia without obstruction or gangrene; Z79.899 Other long term (current) drug therapy; Z78.1 Physical restraint status; K59.00 Constipation, unspecified; Z63.8 Other specified problems related to primary support group; F39 Unspecified mood [affective] disorder; F41.1 Generalized anxiety disorder; F29 Unspecified psychosis not due to a substance or known physiological condition
CPT/HCPCS: 36415; 70450-TC; 71045-TC; 80048-TC; 80076-TC; 81001; 82140-TC; 82962-TC; 83735-TC; 83880; 84100-TC; 84439-TC; 84443-TC; 84484-TC; 85025-TC; 87081-TC; 93307-TC; 97110-TC; 97116-TC; 97530-TC; A4223; G0378; G0480; J1650; J3490; J7030; J7060

== ENCOUNTER 2025-05-30 14:04 | Inpatient (IN) | payer MEDICARE, MEDICAID ==
[~2025-05-30] VITALS: Ht 172.7 cm; Wt 65.3 kg
[~2025-05-30 14:04] MED LIST changes: -HYDR-4303 PO; -MIRT-90 PO; +MIRT7.5T10 PO
[2025-05-30] MEDS: IV NS 0.9% 1,000 ML BAG IV ONE (14:50)
[2025-05-30 15:06] LABS: PLATELET COUNT (AUTO) 196 K/uL (150-450); RED BLOOD CELL COUNT(AUTO) 3.89 MIL/uL (4.5-6.0); RED CELL DISTRIBUTION WIDTH 15.0 % (11.5-15.0); WHITE BLOOD COUNT (AUTO) 7.3 K/uL (4.3-11.0)
[2025-05-30 15:17] LABS: CALCIUM, SERUM 8.6 mg/dL (8.5-10.1); CREATININE 1.3 mg/dL (0.6-1.3); SODIUM SERUM 144 mmol/L (136-145); UREA NITROGEN, BLOOD 31 mg/dL (7-18)
[2025-05-30 15:20] LABS: INR 0.98 (0.91-1.10)
[2025-05-30 15:23] LABS: ASPARTATE AMINOTRANSFERASE 10 U/L (15-37); TOTAL PROTEIN, SERUM 6.3 g/dL (6.4-8.2)
[2025-05-30 15:25] LABS: LACTIC ACID 1.2 mmol/L (0.4-2.0)
[2025-05-30] MEDS ORDERED: RISP0.5T65 PO ×2 (15:29)
[2025-05-30] MEDS ORDERED: OMEP20TA5 PO (15:29)
[2025-05-30] MEDS ORDERED: GABA-532 PO (15:29)
[2025-05-30] MEDS ORDERED: MELA5TAB25 PO (15:29)
[2025-05-30] MEDS: CEFEPIME 1 GM in IV D5W 50 ML IV ONE (15:31)
[2025-05-30] MEDS ORDERED: Z GUARD REMEDY 4 OZ OINT TP PRN (17:00)
[2025-05-30] MEDS ORDERED: MAG HYDROX/AL HYDROX/SIMETH 30 ML UDC PO PRN (17:00)
[2025-05-30] MEDS ORDERED: ONDANSETRON HCL/PF 4 MG/2 ML VIAL IVP PRN (17:00)
[2025-05-30] MEDS ORDERED: LORAZEPAM 1 MG TABLET PO PRN (17:00)
[2025-05-30] MEDS ORDERED: ACETAMINOPHEN 325 MG TABLET PO PRN (17:00)
[2025-05-30] MEDS ORDERED: MAGNESIUM HYDROXIDE 30 ML UDC PO PRN (17:00)
[2025-05-30] MEDS: GABAPENTIN 100 MG CAPSULE PO SCH (17:36)
[2025-05-30 20:05] VITALS: BP 151/63; TEMP 97.2; O2SAT 98
[2025-05-31] MEDS: IV NS 0.9% 1,000 ML IV PRN (01:15)
[2025-05-31 01:42] LABS: APPEARANCE,URINE CLEAR (CLEAR); BLOOD, URINE NEGATIVE Ery/uL (NEGATIVE); LEUKOCYTE ESTERASE ,URINE NEGATIVE (NEGATIVE); NITRITE, URINE NEGATIVE (NEGATIVE); UGLUCOSE NEGATIVE (NEGATIVE)
[2025-05-31 04:10] VITALS: BP 128/65; TEMP 97.6; O2SAT 97
[2025-05-31 07:29] LABS: PLATELET COUNT (AUTO) 186 K/uL (150-450); RED BLOOD CELL COUNT(AUTO) 3.62 MIL/uL (4.5-6.0); RED CELL DISTRIBUTION WIDTH 14.8 % (11.5-15.0); WHITE BLOOD COUNT (AUTO) 6.2 K/uL (4.3-11.0)
[2025-05-31 07:43] LABS: SODIUM SERUM 146.0 mmol/L (136-145)
[2025-05-31 07:44] LABS: CALCIUM, SERUM 8.4 mg/dL (8.5-10.1); CREATININE 1.1 mg/dL (0.6-1.3); PHOSPHORUS 3.4 mg/dL (2.5-4.9); UREA NITROGEN, BLOOD 24.0 mg/dL (7-18)
[2025-05-31 08:00] VITALS: BP 118/51; TEMP 97.3; O2SAT 97
[2025-05-31] MEDS: ASCORBIC ACID 500 MG TABLET PO SCH (08:34)
[2025-05-31] MEDS: FERROUS SULFATE (325 MG) 325 MG/TAB TABLET PO SCH (08:34)
[2025-05-31] MEDS: PANTOPRAZOLE 40 MG TABLET.DR PO SCH (08:34)
[2025-05-31 16:00] VITALS: BP 123/58; TEMP 97.7; O2SAT 97
[2025-05-31 20:00] VITALS: BP 159/74; TEMP 97.9; O2SAT 96
[2025-06-01 04:00] VITALS: BP 144/60; TEMP 97.9; O2SAT 96
== END 2025-06-01 20:00 | disposition home health service (06) | DRG 640 ==
LOC: ER 14:08 → MEDSG1 15:45
PROVIDERS: ADMIT Internal Medicine; ATTEND Nurse Practitioner Acute Care
DX: E86.0 Dehydration (principal); G93.41 Metabolic encephalopathy; E44.0 Moderate protein-calorie malnutrition; I10 Essential (primary) hypertension; F03.90 Unspecified dementia, unspecified severity, without behavioral disturbance, psychotic disturbance, mood disturbance, and anxiety; F29 Unspecified psychosis not due to a substance or known physiological condition; F03.92 Unspecified dementia, unspecified severity, with psychotic disturbance; I25.10 Atherosclerotic heart disease of native coronary artery without angina pectoris; R79.89 Other specified abnormal findings of blood chemistry; G62.9 Polyneuropathy, unspecified; Z95.0 Presence of cardiac pacemaker; Z87.19 Personal history of other diseases of the digestive system; Z79.899 Other long term (current) drug therapy; E88.09 Other disorders of plasma-protein metabolism, not elsewhere classified; Z86.79 Personal history of other diseases of the circulatory system
CPT/HCPCS: 36415; 70450-TC; 71045-TC; 80048-TC; 80076-TC; 83605-TC; 83735-TC; 84100-TC; 84484-TC; 85025-TC; 85730-TC; 87040-TC; 87081-TC; 87086-TC; 92526; 92611; 97110-TC; 97116-TC; 97530-TC; A4223; A4623; G0378; J0692; J7030; J7040; J7060